=== PATIENT | female | born 1965 | race Caucasian/White ===

== ENCOUNTER 2016-11-02 15:21 | Emergency (ER) | payer BC ==
[2016-11-02] MEDS ORDERED: PREDNISONE 20 MG TABLET ONE (16:01)
[2016-11-02] MEDS ORDERED: LACTATED RINGERS 1,000 ML ONE (16:01)
[2016-11-02 16:14] LABS: ABSOLUTE NEUTROPHIL COUNT 2.9 K/mm3 (1.8-7.7); BASO % 0.6 % (0.2-1.0); EOS # 0.1 (0.0-0.5); EOS % 1.1 % (0.9-2.9); HEMATOCRIT 43.7 % (37.0-47.0); HEMOGLOBIN 14.2 gm/l (12.0-16.0); IMM NEUT% 0.2 % (0-1); LYMPH # 2.2 (1.0-4.8); LYMPH % 39.9 % (15-45); MEAN CELL VOLUME 89.4 fl (81.0-99.0); MEAN CORPUSCULAR HGB CONC 32.5 g/dl (33.0-37.0); MEAN PLATELET VOLUME 9.7 fl (7.4-10.4); MONO # 0.3 (0.0-0.8); MONO % 5.4 % (4-12); NEUT % 52.8 % (43-75); PLATELET COUNT 276 K/mm3 (130-400); RED CELL DISTRIBUTION WIDTH 13.6 % (11.5-14.5)
[2016-11-02 16:32] LABS: CALCIUM 9.5 mg/dL (8.6-10.3)
[2016-11-02 17:19] LABS: URINE BILIRUBIN NEGATIVE (NEGATIVE); URINE BLOOD NEGATIVE (NEGATIVE); URINE GLUCOSE (UA) NEGATIVE (NEGATIVE); URINE LEUKOCYTE ESTERASE NEGATIVE (NEGATIVE); URINE NITRITE NEGATIVE (NEGATIVE); URINE PROTEIN NEGATIVE (NEGATIVE); URINE UROBILINOGEN NORMAL (0-1 mg/dl)
[2016-11-02 17:20] LABS: URINE APPEARANCE CLEAR; URINE COLOR LIGHT YELLOW
[2016-11-02] MEDS ORDERED: ONDANSETRON 4 MG/2ML 2 ML VIAL ONE (17:27)
[2016-11-02] MEDS ORDERED: LORAZEPAM 2 MG/ML 1ML SDV ONE (17:27)
== END 2016-11-02 18:33 | disposition home or self-care (01) ==
LOC: ED 15:21
DX: R00.0 Tachycardia, unspecified (principal); R42 Dizziness and giddiness; L50.9 Urticaria, unspecified; G90.1 Familial dysautonomia [Riley-Day]; K21.9 Gastro-esophageal reflux disease without esophagitis
CPT/HCPCS: 85025; 80048; 81003; 96375; 99283 ×2; 96374; 96361 ×2; J2060; J7512; J2405; J7120